=== PATIENT | female | born 1995 | race Caucasian/White ===

== ENCOUNTER → 2023-10-25 06:27 | Day surgery (SDC) | payer BC, SELFPAY | LOC: GI 06:27 | PROVIDERS: ATTENDING PHYSICIAN Internal Medicine; FAMILY PHYSICIAN Family Medicine | DX: K21.9 Gastro-esophageal reflux disease without esophagitis (principal); K20.0 Eosinophilic esophagitis | CPT/HCPCS: 43249; 43239; 88305 ==